=== PATIENT | male | born 1965 ===

== ENCOUNTER 2016-08-15 07:10 | Day surgery (SDC) | payer MEDICAID ==
[2016-08-15] MEDS ORDERED: Lactated Ringer's 500 ML IV ONE (07:46)
[2016-08-15 07:51] VITALS: TEMP 97
[2016-08-15] MEDS ORDERED: Propofol 10 mg/ml Inj (20 ML) ONE (08:28)
[2016-08-15 09:14] VITALS: BP 121/82; PULSE 69; RESP 14; O2SAT 100
== END 2016-08-15 13:56 | disposition home or self-care (01) ==
LOC: H.ENDO 07:10
PROVIDERS: ATTEND Internal Medicine Gastroenterology
DX: Z12.11 Encounter for screening for malignant neoplasm of colon (principal); K64.8 Other hemorrhoids

== ENCOUNTER 2016-11-21 07:26 | Day surgery (SDC) | payer MEDICAID ==
[2016-11-21] MEDS ORDERED: Lactated Ringer's 500 ML IV ONE (07:55)
[2016-11-21] MEDS ORDERED: Propofol 10 mg/ml Inj (20 ML) ONE (09:21)
[2016-11-21 09:39] VITALS: BP 103/63; PULSE 75; RESP 11; TEMP 97.2; O2SAT 99
== END 2016-11-21 09:59 | disposition home or self-care (01) ==
LOC: H.ENDO 07:26
PROVIDERS: ATTEND Internal Medicine Gastroenterology
DX: K29.50 Unspecified chronic gastritis without bleeding (principal); K31.89 Other diseases of stomach and duodenum